=== PATIENT | male | born 1930 | race Caucasian/White ===

== ENCOUNTER 2021-09-25 14:13 | Outpatient (CLI) | payer MEDICARE, BC | END 2021-09-25 14:14 | disposition home or self-care (01) | LOC: CSHWCC 14:13 | PROVIDERS: ATTEND Nurse Practitioner Family | DX: I87.311 Chronic venous hypertension (idiopathic) with ulcer of right lower extremity (principal); L97.812 Non-pressure chronic ulcer of other part of right lower leg with fat layer exposed; R60.0 Localized edema | CPT/HCPCS: 99204; G0463 ==

== ENCOUNTER 2021-10-02 08:39 | Outpatient (CLI) | payer MEDICARE, BC | END 2021-10-02 08:40 | disposition home or self-care (01) | LOC: CSHWCC 08:39 | PROVIDERS: ATTEND Nurse Practitioner Family | DX: I87.331 Chronic venous hypertension (idiopathic) with ulcer and inflammation of right lower extremity (principal); L97.212 Non-pressure chronic ulcer of right calf with fat layer exposed; R60.0 Localized edema | CPT/HCPCS: 97139; G0463; 99213 ==

== ENCOUNTER 2021-11-19 12:04 | Outpatient (CLI) | payer MEDICARE, BC | END 2021-11-19 12:05 | disposition home or self-care (01) | LOC: CSHWCC 12:04 | PROVIDERS: ATTEND Family Medicine | DX: I87.331 Chronic venous hypertension (idiopathic) with ulcer and inflammation of right lower extremity (principal); L97.212 Non-pressure chronic ulcer of right calf with fat layer exposed; R60.0 Localized edema | CPT/HCPCS: 29581; 97607 ==

== ENCOUNTER 2021-11-26 14:31 | Outpatient (CLI) | payer MEDICARE, BC | END 2021-11-26 14:32 | disposition home or self-care (01) | LOC: CSHWCC 14:31 | PROVIDERS: ATTEND Nurse Practitioner Family | DX: I87.311 Chronic venous hypertension (idiopathic) with ulcer of right lower extremity (principal); L97.212 Non-pressure chronic ulcer of right calf with fat layer exposed | CPT/HCPCS: 29581; 97139; 97607; G0463; 99211 ==

== ENCOUNTER 2021-12-03 12:42 | Outpatient (CLI) | payer MEDICARE, BC | END 2021-12-03 12:43 | disposition home or self-care (01) | LOC: CSHWCC 12:42 | PROVIDERS: ATTEND Nurse Practitioner Family | DX: I87.331 Chronic venous hypertension (idiopathic) with ulcer and inflammation of right lower extremity (principal); L97.212 Non-pressure chronic ulcer of right calf with fat layer exposed; R60.0 Localized edema | CPT/HCPCS: 29581; 97139; 97605; G0463; 99213 ==

== ENCOUNTER 2021-12-10 12:52 | Outpatient (CLI) | payer MEDICARE, BC | END 2021-12-10 12:53 | disposition home or self-care (01) | LOC: CSHWCC 12:52 | PROVIDERS: ATTEND Nurse Practitioner Family | DX: I87.331 Chronic venous hypertension (idiopathic) with ulcer and inflammation of right lower extremity (principal); L97.212 Non-pressure chronic ulcer of right calf with fat layer exposed; R60.0 Localized edema | CPT/HCPCS: 29581; 82962; 97139; 97607; G0463; 36416; 99213 ==

== ENCOUNTER 2021-12-18 13:09 | Outpatient (CLI) | payer MEDICARE, BC | END 2021-12-18 13:10 | disposition home or self-care (01) | LOC: CSHWCC 13:09 | PROVIDERS: ATTEND Nurse Practitioner Family | DX: I87.331 Chronic venous hypertension (idiopathic) with ulcer and inflammation of right lower extremity (principal); L97.212 Non-pressure chronic ulcer of right calf with fat layer exposed; R60.0 Localized edema | CPT/HCPCS: 29581; 97607 ==

== ENCOUNTER 2021-12-24 10:04 | Outpatient (CLI) | payer MEDICARE, BC | END 2021-12-24 10:05 | disposition home or self-care (01) | LOC: CSHWCC 10:04 | PROVIDERS: ATTEND Nurse Practitioner Family | DX: I87.331 Chronic venous hypertension (idiopathic) with ulcer and inflammation of right lower extremity (principal); L97.212 Non-pressure chronic ulcer of right calf with fat layer exposed; R60.0 Localized edema | CPT/HCPCS: 29581; 97607 ==

== ENCOUNTER 2022-01-01 09:17 | Outpatient (CLI) | payer MEDICARE, BC | END 2022-01-01 09:18 | disposition home or self-care (01) | LOC: CSHWCC 09:17 | PROVIDERS: ATTEND Nurse Practitioner Family | DX: I87.331 Chronic venous hypertension (idiopathic) with ulcer and inflammation of right lower extremity (principal); L97.212 Non-pressure chronic ulcer of right calf with fat layer exposed; R60.0 Localized edema | CPT/HCPCS: 11042; 97607 ==

== ENCOUNTER 2022-01-07 14:44 | Outpatient (CLI) | payer MEDICARE, BC | END 2022-01-07 14:45 | disposition home or self-care (01) | LOC: CSHWCC 14:44 | PROVIDERS: ATTEND Nurse Practitioner Family | DX: I87.331 Chronic venous hypertension (idiopathic) with ulcer and inflammation of right lower extremity (principal); L97.212 Non-pressure chronic ulcer of right calf with fat layer exposed; R60.0 Localized edema | CPT/HCPCS: 29581; 97607 ==

== ENCOUNTER 2022-01-14 09:21 | Outpatient (CLI) | payer MEDICARE, BC | END 2022-01-14 09:22 | disposition home or self-care (01) | LOC: CSHWCC 09:21 | PROVIDERS: ATTEND Nurse Practitioner Family | DX: I87.331 Chronic venous hypertension (idiopathic) with ulcer and inflammation of right lower extremity (principal); L97.212 Non-pressure chronic ulcer of right calf with fat layer exposed; R60.0 Localized edema | CPT/HCPCS: 29581; 97607 ==

== ENCOUNTER 2022-01-21 08:54 | Outpatient (CLI) | payer MEDICARE, BC | END 2022-01-21 08:55 | disposition home or self-care (01) | LOC: CSHWCC 08:54 | PROVIDERS: ATTEND Nurse Practitioner Family | DX: I87.331 Chronic venous hypertension (idiopathic) with ulcer and inflammation of right lower extremity (principal); L97.212 Non-pressure chronic ulcer of right calf with fat layer exposed; R60.0 Localized edema | CPT/HCPCS: 29581 ==

== ENCOUNTER 2022-01-28 08:00 | Outpatient (CLI) | payer MEDICARE, BC | END 2022-01-28 08:01 | disposition home or self-care (01) | LOC: CSHWCC 08:00 | PROVIDERS: ATTEND Nurse Practitioner Family | DX: I87.331 Chronic venous hypertension (idiopathic) with ulcer and inflammation of right lower extremity (principal); L97.212 Non-pressure chronic ulcer of right calf with fat layer exposed; R60.0 Localized edema | CPT/HCPCS: 29581; 97607 ==

== ENCOUNTER 2022-02-04 14:01 | Outpatient (CLI) | payer MEDICARE, BC | END 2022-02-04 14:02 | disposition home or self-care (01) | LOC: CSHWCC 14:01 | PROVIDERS: ATTEND Nurse Practitioner Family | DX: I87.331 Chronic venous hypertension (idiopathic) with ulcer and inflammation of right lower extremity (principal); L97.212 Non-pressure chronic ulcer of right calf with fat layer exposed; R60.0 Localized edema ==

== ENCOUNTER 2022-02-11 13:03 | Outpatient (CLI) | payer MEDICARE, BC | END 2022-02-11 13:04 | disposition home or self-care (01) | LOC: CSHWCC 13:03 | PROVIDERS: ATTEND Nurse Practitioner Family | DX: I87.331 Chronic venous hypertension (idiopathic) with ulcer and inflammation of right lower extremity (principal); L97.212 Non-pressure chronic ulcer of right calf with fat layer exposed; R60.0 Localized edema ==

== ENCOUNTER 2022-02-18 13:18 | Outpatient (CLI) | payer MEDICARE, BC | END 2022-02-18 13:19 | disposition home or self-care (01) | LOC: CSHWCC 13:18 | PROVIDERS: ATTEND Nurse Practitioner Family | DX: I87.331 Chronic venous hypertension (idiopathic) with ulcer and inflammation of right lower extremity (principal); L97.212 Non-pressure chronic ulcer of right calf with fat layer exposed; R60.0 Localized edema ==

== ENCOUNTER 2022-02-25 11:11 | Outpatient (CLI) | payer MEDICARE, BC | END 2022-02-25 11:12 | disposition home or self-care (01) | LOC: CSHWCC 11:11 | PROVIDERS: ATTEND Nurse Practitioner Family | DX: I87.311 Chronic venous hypertension (idiopathic) with ulcer of right lower extremity (principal); L97.212 Non-pressure chronic ulcer of right calf with fat layer exposed; R60.0 Localized edema ==

== ENCOUNTER 2022-03-10 08:20 | Outpatient (CLI) | payer MEDICARE, BC | END 2022-03-10 08:21 | disposition home or self-care (01) | LOC: CSHWCC 08:20 | PROVIDERS: ATTEND Nurse Practitioner Family | DX: R60.0 Localized edema (principal) | CPT/HCPCS: 97139; G0463; 99212 ==

== ENCOUNTER 2022-04-15 14:11 | Outpatient (CLI) | payer MEDICARE, BC | END 2022-04-15 14:12 | disposition home or self-care (01) | LOC: CSHWCC 14:11 | PROVIDERS: ATTEND Preventive Medicine Undersea and Hyperbaric Medicine | DX: L97.812 Non-pressure chronic ulcer of other part of right lower leg with fat layer exposed (principal); R60.0 Localized edema | CPT/HCPCS: 29581 ==

== ENCOUNTER 2022-04-29 10:21 | Outpatient (CLI) | payer MEDICARE, BC | END 2022-04-29 10:22 | disposition home or self-care (01) | LOC: CSHWCC 10:21 | PROVIDERS: ATTEND Preventive Medicine Undersea and Hyperbaric Medicine | DX: R60.0 Localized edema (principal) | CPT/HCPCS: 97139; G0463; 99213 ==